=== PATIENT | female | born 1980 | race Caucasian/White ===

== ENCOUNTER 2023-04-13 12:44 | Emergency (ER) | payer BC ==
[2023-04-13] MEDS ORDERED: ACETAMINOPHEN 325 MG TABLET (FP) PO ONE (13:15)
[2023-04-13 13:16] VITALS: BP 147/89; PULSE 69; RESP 18; TEMP 98.3; BMI 18.8
[2023-04-13] MEDS ORDERED: ACETAMINOPHEN 325 MG TABLET (FP) ONE (13:24)
== END 2023-04-13 14:23 | disposition home or self-care (01) ==
LOC: FER 12:44
DX: S09.90XA Unspecified injury of head, initial encounter (principal); R09.89 Other specified symptoms and signs involving the circulatory and respiratory systems; Y04.8XXA Assault by other bodily force, initial encounter; Y92.009 Unspecified place in unspecified non-institutional (private) residence as the place of occurrence of the external cause; Y99.0 Civilian activity done for income or pay
CPT/HCPCS: 70450-TC; 81025; 99284-25